=== PATIENT | male | born 1990 ===

== ENCOUNTER 2018-05-29 11:37 | Inpatient (IN) | payer MEDICAID ==
[2018-05-29 11:40] VITALS: BMI 24.4
--- NOTE | 2018-05-29 13:10 | RAD ---
HISTORY: clearance COMPARISON: No prior. FINDINGS: LUNGS: No focal airspace opacity. PLEURA: No significant pleural effusion identified, no pneumothorax apparent. CARDIOVASCULAR: Normal. OSSEOUS STRUCTURES: No significant abnormalities. VISUALIZED UPPER ABDOMEN: Normal. OTHER FINDINGS: None. IMPRESSION: No focal airspace opacity.
[2018-05-29 13:41] LABS: BASO % 0.3 % (0.0-2.0); EOS # 0.1 K/uL (0.0-0.7); HEMOGLOBIN 14.3 g/dL (12.0-18.0); LYMPH # 1.6 K/uL (1.0-4.3); LYMPH % 14.6 % (20.0-40.0); MEAN CELL VOLUME 87.2 fl (80.0-94.0); MEAN CORPUSCULAR HGB CONC 33.2 g/dL (33.0-37.0); MEAN PLATELET VOLUME 9.4 fl (7.2-11.7); MONO # 0.7 K/uL (0.0-0.8); MONO % 6.4 % (0.0-10.0); NEUT # 8.2 K/uL (1.8-7.0); NEUT % 77.7 % (50.0-75.0); RBC 4.93 Mil/uL (4.40-5.90); RED CELL DISTRIBUTION WIDTH 13.3 % (11.5-14.5); WHITE BLOOD COUNT 10.6 K/uL (4.8-10.8)
[2018-05-29 13:46] LABS: SQUAMOUS EPITHIAL 1 /hpf (0-5); URINE BACTERIA RARE (<OCC); URINE BILIRUBIN NEGATIVE (NEGATIVE); URINE BLOOD NEGATIVE (NEGATIVE); URINE CLARITY SLIGHTY-CLOUDY (Clear); URINE COLOR YELLOW (YELLOW); URINE GLUCOSE (UA) NEG (Normal); URINE LEUKOCYTE ESTERASE NEG Leu/uL (Negative); URINE PROTEIN NEGATIVE (NEGATIVE); URINE UROBILINOGEN 0.2-1.0 mg/dL (0.2-1.0)
[2018-05-29 13:54] LABS: ALB/GLOB RATIO 1.2 (1.0-2.1); ALBUMIN 3.9 g/dL (3.5-5.0); ALT/SGPT 40 U/L (21-72); AST/SGOT 31 U/L (17-59); BLOOD UREA NITROGEN 11 mg/dl (9-20); GFR AFRICAN-AMERICAN > 60; GFR NON-AFRICAN AMERICAN > 60
[2018-05-29 14:11] LABS: ACETAMINOPHEN < 10.0 ug/ml (10.0-30.0); SALICYLATE < 1.0 mg/dl
[2018-05-29 14:13] LABS: BARBITURATES, UR NEGATIVE (NEGATIVE); BENZODIAZEPINES, UR NEGATIVE (NEGATIVE); OPIATES, UR NEGATIVE (NEGATIVE); PHENCYCLIDINE, UR NEGATIVE (NEGATIVE)
--- NOTE | 2018-05-29 15:05 | ED PDOC ---
HPI: Psych/Substance Abuse Time Seen by Provider: 05/29/18 12:04 Chief Complaint (Nursing): Psychiatric Evaluation Chief Complaint (Provider): Psychiatric Evaluation History Per: Patient History/Exam Limitations: no limitations Onset/Duration Of Symptoms: Days (x14) Current Symptoms Are (Timing): Still Present Additional Complaint(s): 27 y/o male with a PMHx of bradycardia and depression presents to the ED for psychiatric evaluation. Patient states for the past two weeks, he has been very depressed. Patient reports he informed his therapist that he wants to harm himself. Patient further reports that two weeks ago he took an unknown amount of pills and does not recall what pills they were. Patient admits to drinking alcohol with it in an attempt to harm himself. Patient states he slept for approximately 17 hours and never sough medical care as he had no other symptoms. Patient further reports he stayed in the hospital in May of last year for bradycardia and was evaluated by tearer in the hospital and was told he did not require a pacemaker. Denies chest pain, weakness, and shortness of breath. PMD: Faraz Plascencia Past Medical History Reviewed: Historical Data, Nursing Documentation, Vital Signs Vital Signs: Last Vital Signs Temp 98.3 F 05/29/18 11:40 Pulse 52 L 05/29/18 11:40 Resp 20 05/29/18 11:40 BP 154/79 H 05/29/18 11:40 Pulse Ox 99 05/29/18 11:40 - Medical History PMH: Anxiety (NO MEDS), Arthritis, Asthma (NO MEDS SEVERAL YEARS), Bipolar Disorder, Cardia Arrhythmia (bradycardia), Depression (NO MEDS), Migraine, Rheumatoid Arthritis (NO MEDS/KNEE SHOULDER PAIN), Schizophrenia, Sickle Cell Disease (ANEMIA; TRAIT) Denies: Diabetes, Hepatitis, HIV, HTN, Chronic Kidney Disease, Seizures, Sexually Transmitted Disease - Surgical History Surgical History: No Surg Hx - Family History Family History: States: Unknown Family Hx - Social History Alcohol: > 2 Drinks/Day - Immunization History Hx Tetanus Toxoid Vaccination: No Hx Influenza Vaccination: No Hx Pneumococcal Vaccination: No - Home Medications Home Medications: Ambulatory Orders Medication Instructions Recorded Benztropine [Benztropine Mesylate] 0.5 mg PO Q12 03/02/18 Escitalopram [Lexapro] 20 mg PO DAILY 03/02/18 Gabapentin 300 mg PO Q8 03/02/18 Risperidone [Risperdal] 2 mg PO DAILY 03/02/18 Tizanidine HCl 4 mg PO TID PRN 03/02/18 Topiramate 100 mg PO BID 03/02/18 Acetaminophen/Butalbital/Caf 1 tab PO Q6 PRN 05/29/18 [Fioricet] buPROPion [Wellbutrin] 100 mg PO Q12 05/29/18 - Allergies Allergies/Adverse Reactions: Allergies Allergy/AdvReac Type Severity Reaction Status Date / Time No Known Allergies Allergy Verified 05/29/18 11:47 Review of Systems Psych: Positive for: Depression, Suicidal ideation, Other (psychiatric evaluation ) Physical Exam - Reviewed Nursing Documentation Reviewed: Yes Vital Signs Reviewed: Yes - Physical Exam Appears: Positive for: No Acute Distress Head Exam: Positive for: ATRAUMATIC, NORMOCEPHALIC Skin: Positive for: Normal Color, Warm, Dry Eye Exam: Positive for: Normal appearance, EOMI, PERRL ENT: Positive for: Normal ENT Inspection Neck: Positive for: Normal, Painless ROM, Supple Cardiovascular/Chest: Positive for: Bradycardia. Negative for: Murmur Respiratory: Positive for: Normal Breath Sounds, Respiratory Distress Gastrointestinal/Abdominal: Positive for: Normal Exam, Soft. Negative for: Tenderness Back: Positive for: Normal Inspection. Negative for: Vertebral Tenderness Extremity: Positive for: Normal ROM. Negative for: Pedal Edema, Deformity Neurologic/Psych: Positive for: Alert, Oriented, Mood/Affect (depressed but is cooperative). Negative for: Motor/Sensory Deficits - Laboratory Results Result Diagrams: 05/29/18 13:35 05/29/18 13:35 - ECG ECG: Positive for: Interpreted By Me ECG Rhythm: Positive for: Sinus Bradycardia Rate: 41 O2 Sat by Pulse Oximetry: 99 (RA) Pulse Ox Interpretation: Normal - Radiology X-Ray: Interpreted by Me (CXR) X-Ray Interpretation: No Acute Disease - Progress ED Course And Treament: Pt. evaluated by Lorraine, paper and pulp mill worker, who spoke with Dr. Haynes and requests that pt. be admitted. Case d/w Dr. Son who agrees with care and states pt. can be cleared for inpatient psychiatric care despite bradycardia. Pt. has a hx of bradycardia and is currently asymptomatic. States his HR is usually between 50s-40s Pt. was already cleared by cardiology last year and does not need any ongoing treatment. Pt. is cleared to stay in the inpatient psychiatric [facility]. Medical Decision Making Medical Decision Making: Time: 1238 Plan: -- EKG -- Acetaminophen -- Alcohol Serum -- CMP -- Urine Drug Screen -- Salicylate -- Crisis Eval -- CBC with differentials -- Chest Portable XR -- 1:1 Observation -- Urinalysis Time: 1308 CXR RESULTS FINDINGS: LUNGS: No focal airspace opacity. PLEURA: No significant pleural effusion identified, no pneumothorax apparent. CARDIOVASCULAR: Normal. OSSEOUS STRUCTURES: No significant abnormalities. VISUALIZED UPPER ABDOMEN: Normal. OTHER FINDINGS: None. IMPRESSION: No focal airspace opacity. Scribe Attestation: Documented by Willian Waters, acting as a scribe for Andres Leyva PA-C. Provider Scribe Attestation: All medical record entries made by the Scribe were at my direction and personally dictated by me. I have reviewed the chart and agree that the record accurately reflects my personal performance of the history, physical exam, medical decision making, and the department course for this patient. I have also personally directed, reviewed, and agree with the discharge instructions and disposition. Disposition - Clinical Impression Clinical Impression: Schizophrenia - Patient ED Disposition Is Patient to be Admitted: Yes - Disposition Disposition Time: 13:00 Condition: STABLE
[2018-05-29] MEDS ORDERED: DiphenhydrAMINE 50 mg/ml Inj IM PRN (21:43)
[2018-05-29] MEDS ORDERED: Alum-Mag Hydrox-Simethicone Susp (30 mL) PO PRN (21:43)
[2018-05-29] MEDS ORDERED: Magnesium Hydroxide Susp 30 ml UD PO PRN (21:43)
[2018-05-29 22:20] VITALS: O2SAT 99
--- NOTE | 2018-05-29 22:24 | PCM.BM ---
<DamonLuisana C - Last Filed: 05/29/18 22:22> Treatment Plan Problems - Problems identified on initial assessmt Command/Auditory Hallucinations Date Initiated: 05/29/18 Time Initiated: 22:23 Assessment reference: NA Status: Active Medication nonadherence Date Initiated: 05/29/18 Time Initiated: 22:23 Assessment reference: NA Status: Active Treatment assets and liabiliti Patient Assests: cooperative, self-reliant, ADL independent, good support system , negotiates basic needs, financial stabiity, cognitively intact Patient Liabilities: relationship conflicts, substance abuse (noncompliance with meds.) - Milieu Protocol Maintain good personal hygiene: daily Encourage regular showers, every shift Remind patient to perform daily oral care Conduct patient checks and document Observation sheet: Q15 minutes Maintain personal safety: every shift Educate patient to report safety concerns to staff, every shift Monitor environment for contraband/sharps Medication safety: Monitor for expected outcome, potential side effects: every shift, Assess barriers to learning: every shift, Assess readiness for medication education: every shift <Kristen Haynes - Last Filed: 05/31/18 11:06> - Diagnosis (1) Schizoaffective disorder Status: Acute Interventions: Medication management, Individual and group therapy, Psychoeducation 05/31/18 11:06 <Kira Velasquez - Last Filed: 05/31/18 12:26> Treatment assets and liabiliti Patient Assests: adapts well, resourceful, ADL independent, negotiates basic needs, cognitively intact Patient Liabilities: poor support system (circumstantial support from family), relationship conflicts, substance abuse (poor insight into cannabis use-reports having a lisence for medical marijuana), medical problems, legal issue (hx of arrests for violence) Family Contact Family involvement: Family/SO is involved (limited) Family contact: Patient agrees to contact, Family has been contacted by patient , Telephone contact initiated by staff Family contact name: Farida(sister) ([phone]) Family contacted how many times per week?: 2 Family contact comment: [employer] placed call to pts sister to discuss precursors to hospitalization, progress on 3NP and possible discharge of 06/01. Phone rang several times without option to leave voicemail or call back number. [employer] to attempt call at later time. - Outside Agency Agency 1 Agency contact name: [facility] ([place]) Agency contact number: [phone] Agency 2 Care involvment: Following patient during stay, Information-sharing, Other Agency contact name: [facility] ([place]) Agency contact number: [phone] - Goals for Treatment Patient goals for treatment: Patient to continue stabilization on 3NP through medication management and group/supportive therapy to address sxs of depression , AH, feelings of anger and eliminate SI/HI. Patient to be encouraged to attend groups regularly to promote self-awareness, anger management, sobriety, and improve insight, compliance, coping skills,impulse control, and self-esteem. Patient to be provided with referral for appropriate level of aftercare to reduce risk of future hospitalizations and ensure safety in the community. Discharge/Continuing Care - Education Needs Education Needs: Patient Medication, Patient Diagnosis/Disease Process, Patient Coping Skills, Patient Anger Management skills, Patient Community resources, Patient Aftercare Safety Plan - Discharge Discharge Criteria: Tolerates medication w/o severe side effects, Free of Suicidal thoughts, Free of Homicidal thoughts, Free of agitation, Normal sleep pattern, Ability to care for self, Reduction of target symptoms Discharge to:: Home, With Family, Other ([facility]) - Treatment Team Participation Patient/Family/SO Statement: 05/31/18 12:25 Pt. attended tx team and was able to participate in discuss regarding progress on 3NP and tx goals. Pt. AOX4 with constricted affect and fair eye contact. Pt. fairly groomed with fair ADLs. Pt. superficially cooperative, somewhat evasive and easily irritable. Thoughts are organized but somewhat tangential. Speech: overprotective at times. Insight into precursors to hospitalization is limited. Coping skills/Judgment/Impulse Control impaired. Pt. reports improvement in sxs of depression and feelings of anger since admission. Pt. reports experiencing auditory hallucinations at baseline but denies that AH have been command in nature since admission. Pt. has signed a 48 hour notice and is requesting to be discharged. Tx team provided extensive psychoeducation regarding nature of tx on 3NP, 48 hour notice and screening process. Pt. refusing to rescind 48 hour notice despite tx team recommendations for further stabilization on 3NP to ensure safety/functioning in the community and reduce risk of future hospitalizations. Pt. to be screened by [facility] for involuntary tx. Pt. requesting to return to [facility] upon d/c. Discussed with Family/SO: No Was Patient/Family/SO present at Treatment Team Meeting: Yes
[2018-05-30] MEDS ORDERED: Apap-Butalbital-Caffeine 325-50-40mg Tab PO PRN (06:16)
[2018-05-30 09:09] LABS: T4 10.6 ug/dl (5.5-11.0)
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
[2018-05-31 09:22] VITALS: RESP 18
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
[2018-05-31 17:25] VITALS: TEMP 98.2
[2018-05-31 23:32] VITALS: BP 138/85; PULSE 51
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
--- NOTE | 2018-06-01 16:42 | CARD ---
APPROVED REPORT Date of service: 05/29/2018 EKG Measurement Heart [id number] <Conclusion> Marked sinus bradycardia Possible Lateral infarct, age undetermined Abnormal ECG
== END 2018-06-01 10:32 | disposition left against medical advice (07) | DRG 430 ==
LOC: H.ER 11:37 → H.ERHOLD 16:40 → H.PSYCH 21:35
PROVIDERS: ADMIT Psychiatry & Neurology Psychiatry; ATTEND Psychiatry & Neurology Psychiatry
PROC: GZHZZZZ Group Psychotherapy (ICD-10-PCS; principal; 2018-05-29)
DX: F25.9 Schizoaffective disorder, unspecified (principal); J45.909 Unspecified asthma, uncomplicated; M19.90 Unspecified osteoarthritis, unspecified site; G43.909 Migraine, unspecified, not intractable, without status migrainosus; M06.9 Rheumatoid arthritis, unspecified; R00.1 Bradycardia, unspecified; R45.851 Suicidal ideations; F17.210 Nicotine dependence, cigarettes, uncomplicated; Z91.14 Patient's other noncompliance with medication regimen; F12.90 Cannabis use, unspecified, uncomplicated